=== PATIENT | male | born 1990 | race American Indian/Alaskan Native ===

== ENCOUNTER 2018-04-04 11:53 | Emergency (ER) | payer OTHER ==
[~2018-04-04 11:53] MED LIST: DIPRIVAN 10 MG/ML 1,000 MG/100 ML BOTTLE IV ONE
[2018-04-04] MEDS ORDERED: APRESOLINE ONE (12:03)
[2018-04-04 12:18] VITALS: BP 128/77
[2018-04-04] MEDS ORDERED: TORADOL IM ONE (13:31)
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
[2018-04-04] MEDS ORDERED: TORADOL ONE (13:53)
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
== END 2018-04-04 15:49 | disposition home or self-care (01) ==
LOC: ED 11:53
DX: S43.402A Unspecified sprain of left shoulder joint, initial encounter (principal); S13.9XXA Sprain of joints and ligaments of unspecified parts of neck, initial encounter; F12.10 Cannabis abuse, uncomplicated; Z88.0 Allergy status to penicillin; Z87.891 Personal history of nicotine dependence; V89.2XXA Person injured in unspecified motor-vehicle accident, traffic, initial encounter; Y93.89 Activity, other specified; Y92.89 Other specified places as the place of occurrence of the external cause; Y99.8 Other external cause status
CPT/HCPCS: 70450; 72125; 73030; 96372; 99284; J0360; J1885; J2704